=== PATIENT | male | born 1995 | race Caucasian/White ===

== ENCOUNTER 2016-10-03 23:03 | Emergency (ER) | payer OTHER ==
[~2016-10-03] VITALS: Ht 170.2 cm; Wt 79.0 kg
[2016-10-03 23:08] VITALS: Ht 170.2 cm; Wt 79.0 kg
[2016-10-04] MEDS ORDERED: CEPH-443 PO (01:03)
--- NOTE | 2016-10-04 01:03 | RADRPT ---
PROCEDURE: XR Foot. CLINICAL INDICATION: Pain. TECHNIQUE: Three views of the right foot. COMPARISON: None available. FINDINGS: No fracture or dislocation is identified. The joint spaces are preserved. There is no significant soft tissue swelling. IMPRESSION: 1. No fracture or dislocation of the right foot. RPTAT: HTAR .Philippe Ballesteros MD, MD Date Time Electronically viewed and signed by .Philippe Ballesteros MD, on 10/04/2016 01:03 .R/
[2016-10-04] MEDS ORDERED: SULF1TAB31 PO (01:04)
[2016-10-04] MEDS ORDERED: IBUP-1542 PO (01:04)
--- NOTE | 2016-10-04 01:08 | ERD ---
ER Documentation Chief Complaint Date/Time DATE: 10/04/16 TIME: 01:05 Chief Complaint right big toe pain hit foot against the door HPI This is a 20-year-old male who presents here because he hit his right big toe against a door on Saturday. Patient did have a small cut, and bleeding was resolved. Patient noticed that area is getting red and swollen and had yellow pus today. He still continues to have pain. Patient denies any fevers or chills. He denies any numbness or tingling of his toes. ROS 12 point review of systems was done, all negative except per HPI. Medications Home Meds Active Scripts Ibuprofen* (Motrin*) 600 Mg Tab, 600 MG PO Q6, #30 TAB Prov:RENÉE JUNIOR C 10/04/16 Sulfamethoxazole/Trimethoprim* (Bactrim Ds* Tablet) 1 Each Tablet, 1 TAB PO BID , #14 TAB Prov:MITCHELL JUNIORNA C 10/04/16 Cephalexin* (Keflex*) 500 Mg Capsule, 500 MG PO BID for 7 Days, #14 CAP Prov:RENÉE JUNIOR C 10/04/16 Allergies Allergies: Coded Allergies: No Known Allergies (Verified Allergy, Mild, 12/08/13) PMhx/Soc Medical and Surgical Hx: pt denies Medical Hx, pt denies Surgical Hx History of Surgery: No Anesthesia Reaction: No Hx Neurological Disorder: No Hx Respiratory Disorders: No Hx Cardiac Disorders: No Hx Psychiatric Problems: No Hx Miscellaneous Medical Probl: No Hx Alcohol Use: No Hx Substance Use: No Hx Tobacco Use: No Smoking Status: Never smoker Physical Exam Vitals Vital Signs Date Time Temp Pulse Resp B/P Pulse Ox O2 Delivery O2 Flow Rate FiO2 10/03/16 23:08 97.8 95 20 147/90 98 Physical Exam GENERAL: The patient is well developed and appropriate for usual state of health , in no apparent distress. HEENT: Atraumatic. CHEST: Clear to auscultation bilaterally. There are no rales, wheezes or rhonchi. HEART: Regular rate and rhythm. No murmurs, clicks, rubs or gallops. EXTREMITIES: Right foot: Right first digit is erythematous tender to palpation with yellow discharge. No evidence of ingrown toenails. +2 pulses normal capillary refill. No ankle pain. Normal range of motion of ankle. NEURO: Alert and oriented. SKIN: There is no apparent rash or petechia. The skin is warm and dry. Procedures/MDM This is a 20-year-old male presents to the ER with right fourth digit pain after he had it against a door. At this time patient does not have any fractures or dislocations. He is neurovascularly intact. He does appear to have an infection of his right first toe. He will be treated with Keflex and Bactrim. Patient is afebrile and well-appearing. Suspicion for deep space infection, osteomyelitis, necrotizing fasciitis is low. Patient is able to ambulate in the ER without any problems. He is stable for outpatient follow- up. He is to follow-up with his primary care doctor within 1-2 days or return to ER sooner if symptoms worsen. My medical decision making was shared with the patient he understands and agrees with plan. Departure Diagnosis: Primary Impression: Foot pain Condition: Stable Patient Instructions: Cellulitis Referrals: [facility] (PCP) Additional Instructions: Call your primary care doctor TOMORROW for an appointment during the next 1-2 days.See the doctor sooner or return here if your condition worsens before your appointment time. RENÉE JUNIOR October 04, 2016 01:08
== END 2016-10-04 01:35 | disposition home or self-care (01) ==
LOC: FTE 23:03
DX: M79.674 Pain in right toe(s) (principal)
CPT/HCPCS: 73630; Z7502

== ENCOUNTER 2016-11-07 09:14 | Emergency (ER) | payer OTHER ==
[~2016-11-07] VITALS: Ht 170.2 cm; Wt 78.0 kg
[~2016-11-07 09:14] MED LIST: CEPH-443 PO; IBUP-1542 PO; SULF1TAB31 PO
[2016-11-07 09:21] VITALS: Ht 170.2 cm; Wt 78.0 kg
[2016-11-07] MEDS ORDERED: LIDOCAINE 2% (MDV) 20 ML INJ INJ ONE (10:00)
[2016-11-07] MEDS ORDERED: CLINDAMYCIN 300 MG INJ IM ONE (11:00)
[2016-11-07] MEDS ORDERED: CLIN-73 PO (11:16)
[2016-11-07] MEDS ORDERED: IBUP-1542 PO (11:16)
--- NOTE | 2016-11-07 18:15 | ERD ---
ER Documentation Chief Complaint Date/Time DATE: 11/07/16 TIME: 18:14 Chief Complaint injured toe seen here before for it and has not been improving HPI This is a 20 y/o male that presents to the ER with continues right great toe nail pain after an injury a month ago. Patient states that his nail is growing "weird" and now there is some yellow pus that is coming out. Patient denies any fever or chills. He denies any numbness or tingling to his foot. Patient describes pain as throbbing, it is worse whenever he puts his shoes on, pain does not radiate anywhere. He has not tried anything for the pain. He denies any new trauma to the area. ROS All systems reviewed and are negative except as per history of present illness. Medications Home Meds Active Scripts Ibuprofen* (Motrin*) 600 Mg Tab, 600 MG PO Q6, #30 TAB Prov:RENÉE JUNIOR Kamila 11/07/16 Clindamycin Hcl* (Clindamycin Hcl*) 300 Mg Capsule, 300 MG PO TID for 10 Days, CAP Prov:RENÉE JUNIOR Kamila 11/07/16 Ibuprofen* (Motrin*) 600 Mg Tab, 600 MG PO Q6, #30 TAB Prov:RENÉE JUNIOR 10/04/16 Sulfamethoxazole/Trimethoprim* (Bactrim Ds* Tablet) 1 Each Tablet, 1 TAB PO BID , #14 TAB Prov:RENÉE JUNIOR Kamila 10/04/16 Cephalexin* (Keflex*) 500 Mg Capsule, 500 MG PO BID for 7 Days, #14 CAP Prov:RENÉE JUNIOR 10/04/16 Allergies Allergies: Coded Allergies: No Known Allergies (Verified Allergy, Mild, 12/08/13) PMhx/Soc History of Surgery: No Anesthesia Reaction: No Hx Neurological Disorder: No Hx Respiratory Disorders: No Hx Cardiac Disorders: No Hx Psychiatric Problems: No Hx Miscellaneous Medical Probl: No Hx Alcohol Use: No Hx Substance Use: No Hx Tobacco Use: No Smoking Status: Never smoker Physical Exam Vitals Physical Exam Const: [] Head: Atraumatic Eyes: Normal Conjunctiva Resp: Clear to auscultation bilaterally Cardio: Regular rate and rhythm, no murmurs Ext: Right Foot: Patient is able to bear weight and ambulate without pain. The first digit has an ingrown toenail with mild erythema and warmth to the touch, no discharge is seen. The right foot is without obvious deformities when compared to the left foot. No bony step-off, NT palpation over 2-4th toes. 1st toe is TTP to the distal tip. Not ttp to the midfoot, hindfoot or sole. Normal plantar/ dorsiflexion, inversion/ eversion. Distal motor and n/v status is intact. Neur: Awake and alert Psych: Normal Mood and Affect Results 24 hrs Current Medications Medications (Trade) Dose Ordered Sig/Faye Route PRN Reason Start Time Stop Time Status Last Admin Dose Admin Lidocaine (Xylocaine 2% (Mdv) 20 ml) 20 ml ONCE ONCE INJ 11/07/16 10:00 11/07/16 10:02 DC Clindamycin Phosphate (Cleocin) 300 mg ONCE ONCE IM 11/07/16 11:00 11/07/16 11:01 DC 11/07/16 11:09 Procedures/MDM After patient's verbal consent, the affected foot was soaked in diluted Betadine. Using aseptic technique, 7 ml of 1% lidocaine without epinephrine was used to do a digital block on the affected toe. After digital block, the ingrown toenail was removed, there was some purulent yellow discharged that was seen when doing procedure. After the procedure, Bacitracin and dry dressing was applied to the area. Patient tolerated procedure well. Patient will be sent home with Clindamycin was there was some yellow discharge that was seen during the procedure. Patient has been afebrile and is extremely well appearing and in no acute distress. Suspicion for cellulitis, osteomyelitis, myositis, rhabdo is low. Patient needs to f/u with his PCP within 1-2 days or return to ER sooner if symptoms worsen. My medical decision making was shared with the patient, he understands and agrees with plan. Departure Diagnosis: Primary Impression: Ingrown toenail Condition: Stable Patient Instructions: Understanding Ingrown Toenails Additional Instructions: Call your primary care doctor TOMORROW for an appointment during the next 1-2 days.See the doctor sooner or return here if your condition worsens before your appointment time. RENÉE JUNIOR Nov 07, 2016 18:15
== END 2016-11-07 11:30 | disposition home or self-care (01) ==
LOC: FTE 09:14
DX: L60.0 Ingrowing nail (principal)
CPT/HCPCS: 11750; 96372; Z7502; Z7610